=== PATIENT | male | born 1995 | race Caucasian/White ===

== ENCOUNTER 2024-05-03 11:05 | Emergency (ER) | payer OTHER ==
[2024-05-03] MEDS ORDERED: Boostrix 0.5 ML (Tdap) VIAL (>/=7 yrs of age) ONE (11:21)
[2024-05-03] MEDS ORDERED: HYDROcodone/Acetaminophen 10/325 mg Tablet ONE (11:30)
[2024-05-03] MEDS ORDERED: Bacitracin 1 PK ONE (11:31)
[2024-05-03] MEDS ORDERED: Ketorolac Tromethamine 30 MG (1 mL) VIAL ONE (12:21)
== END 2024-05-03 13:06 | disposition home or self-care (01) ==
LOC: MADERS 11:05
DX: T25.221A Burn of second degree of right foot, initial encounter (principal); I10 Essential (primary) hypertension; X08.8XXA Exposure to other specified smoke, fire and flames, initial encounter
CPT/HCPCS: 90471; 90715; 96372; J1885